=== PATIENT | female | born 1960 | race Caucasian/White ===

== ENCOUNTER → 2019-10-17 | Outpatient (CLI) | payer OTHER | END | disposition home or self-care (01) | LOC: SONOGRAMA 11:10 → MAMO-SONO 11:45 | PROVIDERS: ATTEND Surgery | DX: E21.0 Primary hyperparathyroidism (principal); E04.2 Nontoxic multinodular goiter ==

== ENCOUNTER 2019-10-30 10:11 | Outpatient (CLI) | payer OTHER ==
[2019-11-09] MEDS ORDERED: JARDIANCE25 MG PO (13:05)
[2019-11-09] MEDS ORDERED: HYZAAR 100-12.1 EACH PO (13:05)
[2019-11-09] MEDS ORDERED: FOSAMAX70 MG PO (13:06)
[2019-11-09] MEDS ORDERED: NEURONTIN300 MG PO (13:06)
[2019-11-09] MEDS ORDERED: METFORMIN HCL750 MG PO (13:06)
[2019-11-09] MEDS ORDERED: FOLIC ACID20 MG PO (13:07)
[2019-11-09] MEDS ORDERED: SIMPONI100 MG/11 (13:08)
[2019-11-09] MEDS ORDERED: SIMVASTATIN10 MG PO (13:08)
== END 2019-10-30 10:20 | disposition home or self-care (01) ==
LOC: NUCLEAR 10:11
PROVIDERS: ATTEND Surgery
DX: E83.52 Hypercalcemia (principal)

== ENCOUNTER 2019-10-30 12:33 | Outpatient (CLI) | payer OTHER ==
[2019-11-09] MEDS ORDERED: HYZAAR 100-12.1 EACH PO (13:05)
[2019-11-09] MEDS ORDERED: JARDIANCE25 MG PO (13:05)
[2019-11-09] MEDS ORDERED: METFORMIN HCL750 MG PO (13:06)
[2019-11-09] MEDS ORDERED: FOSAMAX70 MG PO (13:06)
[2019-11-09] MEDS ORDERED: NEURONTIN300 MG PO (13:06)
[2019-11-09] MEDS ORDERED: FOLIC ACID20 MG PO (13:07)
[2019-11-09] MEDS ORDERED: SIMPONI100 MG/11 (13:08)
[2019-11-09] MEDS ORDERED: SIMVASTATIN10 MG PO (13:08)
== END 2019-10-30 12:45 | disposition home or self-care (01) ==
LOC: SONOGRAMA 12:33
PROVIDERS: ATTEND Pathology Anatomic Pathology & Clinical Pathology
DX: E04.1 Nontoxic single thyroid nodule (principal)

== ENCOUNTER 2019-11-13 05:24 | Day surgery (SDC) | payer OTHER ==
[~2019-11-13] VITALS: Ht 167.6 cm; Wt 99.8 kg
[~2019-11-13 05:24] MED LIST: FOLIC ACID20 MG PO; FOSAMAX70 MG PO; HYZAAR 100-12.1 EACH PO; JARDIANCE25 MG PO; METFORMIN HCL750 MG PO; NEURONTIN300 MG PO; SIMPONI100 MG/11; SIMVASTATIN10 MG PO
== END 2019-11-14 08:00 | disposition home or self-care (01) ==
LOC: CIR.AMB 05:24 → RECOVERY 05:24 → SURH 05:24 → O/R 05:24 → RECOVERY 07:00 → EDSTATUS 11:00 → SURH 13:22 → O/R 13:22 → CIR.AMB 11-14 08:00 → SURH 11-14 10:00
PROVIDERS: ATTEND Surgery
DX: E21.0 Primary hyperparathyroidism (principal); E04.2 Nontoxic multinodular goiter

== ENCOUNTER 2020-10-15 10:19 | Outpatient (CLI) | payer OTHER | END 2020-10-15 10:22 | disposition home or self-care (01) | LOC: SONOGRAMA 10:19 | PROVIDERS: ATTEND Internal Medicine | DX: E03.8 Other specified hypothyroidism (principal); E04.1 Nontoxic single thyroid nodule; D35.1 Benign neoplasm of parathyroid gland; E11.40 Type 2 diabetes mellitus with diabetic neuropathy, unspecified; G63 Polyneuropathy in diseases classified elsewhere; Z79.4 Long term (current) use of insulin ==

== ENCOUNTER 2023-01-20 13:00 | Emergency (ER) | payer OTHER ==
[~2023-01-20] VITALS: Ht 165.1 cm; Wt 113.4 kg
[2023-01-20] MEDS ORDERED: LEVOTHYROXINE25 MCG PO (13:44)
[2023-01-20 15:25] LABS: PH,URINE 5.5 (5.0-8.0); URINE APPEARANCE Cloudy; URINE BILIRRUBIN Negative (NEGATIVE); URINE BLOOD Moderate; URINE COLOR Yellow; URINE LEUKOCYTE Small; URINE NITRATE Negative; URINE PROTEIN Negative (NEGATIVE)
[2023-01-20 15:28] LABS: URINE BACTERIA 372.9 uL (0.0-1933); URINE EPITHELIAL CELLS 71.1 uL (0.0-38.8); URINE RBC 144.7 uL (0.0-20.8); URINE WBC 193.7 uL (0.0-23.2)
[2023-01-20 15:31] LABS: HEMATOCRIT 40.2 % (36.0-45.00); HEMOGLOBIN 12.9 g/dL (12.0-15.00); MEAN CELL VOLUME 94.2 fL (80.00-100.00); MEAN CORPUSCULAR HEMOGLOBIN 30.2 pg (27.00-32.0); MEAN CORPUSCULAR HGB CONC 32.1 g/dl (32.0-36.0); PLATELET COUNT 134 K/uL (150-450); RED BLOOD COUNT 4.27 M/uL (4.00-6.00); RED CELL DISTRIBUTION WIDTH 14.8 % (11.5-14.5)
[2023-01-20 15:45] LABS: CALCIUM 8.8 mg/dL (8.5-10.1); CREATININE SERUM 0.77 mg/dL (0.55-1.02); GFR 76.21; POTASSIUM 3.41 mEq/L (3.5-5.1)
[2023-01-20 16:10] LABS: URINE GLUCOSE >=1000 MG/DL (NEGATIVE); URINE MUCUS SCANT; URINE YEAST FEW /hpf
[2023-01-20] MEDS ORDERED: DICY20TA PO (18:53)
[2023-01-20] MEDS ORDERED: CIPRO500 MG PO (18:53)
[2023-01-20] MEDS ORDERED: PEPCID AC20 MG PO (18:53)
[2023-01-20] MEDS ORDERED: INTESTINEX680 M1 PO (18:53)
== END 2023-01-20 18:56 | disposition home or self-care (01) ==
LOC: ER 13:00
PROVIDERS: General Practice
DX: K52.9 Noninfective gastroenteritis and colitis, unspecified (principal); N39.0 Urinary tract infection, site not specified; E11.9 Type 2 diabetes mellitus without complications; Z79.84 Long term (current) use of oral hypoglycemic drugs; I10 Essential (primary) hypertension; Z88.8 Allergy status to other drugs, medicaments and biological substances
CPT/HCPCS: 36415; 70450; 71046; 96365; 99284; J3490